=== PATIENT | male | born 1965 | race Caucasian/White ===

== ENCOUNTER 2016-12-02 00:50 | Inpatient (IN) | payer OTHER ==
[~2016-12-02] VITALS: Ht 175.3 cm; Wt 110.8 kg
--- NOTE | ~2016-12-02 | EKG ---
[place] [address] [facility] [place] [address] ELECTROCARDIOGRAM REPORT Name: DANIEL VAUGHAN Silvana Room #: 458-P ADM IN M.R.#: [id number] Admission: 12/02/16 Attend Phys: Christoph Ramey MD Discharge: Date of : 63 Report #: [id number] THIS REPORT FOR: //name// [facility] Test Date: 2016-12-02 Test Time: 07:06:45 Pat Name: DANIEL VAUGHAN Department: Room: 458 P Gender: M Cassandra Consultant: : [id number] Requested By: Payton Hernandez Order Number: [id number] MD: Cesar Rojo Measurements Intervals [place] Rate: 63 P: 47 DE: 145 QRS: -38 QRSD: 100 T: 159 QT: 448 QTc: 463 Interpretive Statements Sinus rhythm Multiform ventricular premature complexes Left atrial enlargement LVH w/ repol abnormalities, possible ischemia No previous ECG available for comparison Electronically Signed On 12-03-2016 7:46:56 CDT by Cesar Rojo [email or web address] <ELECTRONICALLY SIGNED> By: Cesar Rojo MD, [facility] 12/03/16 0746 5 5 Cesar Rojo MD, [facility] /EPI
--- NOTE | ~2016-12-02 | CATHLAB ---
[facility] [place] [address] INVASIVE PROCEDURE REPORT Name: CLEMENTDANIEL Silvana Room #: 458-P [facility] IN .#: [id number] Admission: 12/02/16 Attend Phys: Jerome Soriano Discharge: Date of : 63 Date of Service: 12/04/16 1632 Report #: [id number] THIS REPORT FOR: //name// APPROVED REPORT Patient Details The patient is a 51 year-old male Event Personnel Jaydon Reid Plastics Process Hand, Barb Vallejo RN RN, Antonio Kinney Morgan, Carol RN cook tortilla Performed Left Heart Cath w/or w/o Coronaries [id number] [facility] Indication Dyspnea, Heart failure Risk Factors Hypercholesterolemia, Hypertension, Tobacco History () Procedure Narrative The Right Groin^ was infiltrated with 1% Lidocaine subcutaneous anesthesia. A 4 FR SHEATH sheath was inserted into the RFA^. Coronary angiography was performed using coronary diagnostic catheters. The right coronary system was accessed and visualized with a JR4 catheter. The left coronary system was accessed and visualized with a JL4 catheter. The left ventricle was accessed and visualized with a PIGTAIL catheter. Left ventricular/Aortic Valve gradient assessed via catheter pullback. Hemostasis was obtained with manual pressure following sheath removal without any complications. The patient tolerated the procedure well and there were no complications associated with the procedure. There was no hematoma. Intraoperative Conscious Sedation Sedation start time: 14:46 Case end Time: 14:59 Fentanyl 100.0 mcg Versed mg Fluoro Time: 1.29 minutes Dose: 517 mGy Contrast Type and Amount: Omnipaque 120 ml Coronary Angiography The patient's coronary anatomy is right dominant. [facility] [employer] [address] [place] [address] INVASIVE PROCEDURE REPORT Name: DANIEL VAUGHAN Room #: 458-P [facility] IN [facility]#: [id number] Admission: 12/02/16 Attend Phys: Jerome Soriano Discharge: Date of : 63 Date of Service: 12/04/16 1632 Report #: [id number] Diagnostic Cath Left Main Large caliber vessel with no flow-limiting lesions. LAD Moderate caliber vessel, with minimal luminal irregularities within the mid segment. Diagonal 1 Moderate caliber vessel with no flow-limiting lesions. Circumflex Small-caliber vessel, with no flow-limiting lesions. OM1 Moderate caliber vessel, with no flow-limiting lesions. Right Coronary Large-caliber vessel, with minimal luminal irregularities within mid segment. R PDA No flow-limiting lesions. RPLV No flow-limiting lesions. Left Ventriculography The left ventricular ejection fraction is estimated to be 30-35%. Hemodynamics The aortic pressure is 148/94 mmHg with a mean of 90 mmHg. The left ventricular pressure is 149/25 mmHg with a mean of mmHg. The left ventricular end diastolic pressure is 44 mmHg. There was no gradient across the aortic valve upon pullback. Pullback from the left ventricle to the aorta revealed no gradient across the aortic valve. Conclusion 1. Nonischemic cardiomyopathy. 2. Patent [place] coronary arteries, with minimal luminal irregularities. 3. Recommend medical therapy. Recommendations Smoking Cessation Medical Therapy <ELECTRONICALLY SIGNED> By: Jaydon Reid MD 12/04/16 1632 [id number] Jaydon Reid MD /INF
--- NOTE | ~2016-12-02 | 2DMMODE ---
[facility] [address] [place] [address] 2 D/M-MODE ECHOCARDIOGRAM Name: DANIEL VAUGHAN Room #: 458-P ADM IN .R.#: [id number] Admission: 12/02/16 Attend Phys: Jerome Soriano Discharge: Date of : 63 Date of Service: 12/02/16 1112 Report #: [id number] THIS REPORT FOR: //name// APPROVED REPORT Study performed: 12/02/2016 08:18:12 EXAM: Comprehensive 2D, Doppler, and color-flow Echocardiogram Patient Location: Bedside Room #: 458 Status: routine Other Information Study Quality: Good Indications Congestive Heart Failure Pulmonary Hypertension Diabetes Dyspnea Hypertension/HDD 2D Dimensions RVDd: 43.40 mm LVEF(%): 50.24 (>50%) IVSd: 13.80 (7-11mm) LVOT Diam: 21.28 (18-24mm) LVDd: 52.97 mm PWd: 14.46 (7-11mm) Ascending Ao: 36.65 (22-36mm) LVDs: 39.34 (25-40mm) Aortic Root: 32.28 mm IVC: 23.00 mm Marcus's LVEF: 50.24 % Volumes Left Atrial Volume (Systole) Single Plane 4CH: 95.44 mL Single Plane 2CH: 82.86 mL LA ESV Index: 42.00 mL/m2 Aortic Valve AoV Peak Pankaj.: 1.10 m/s AO Peak Gr.: 4.85 mmHg LVOT Max P.65 mmHg LVOT Max V: 0.81 m/s MARISABEL Vmax: 2.63 cm2 Mitral Valve E/A Ratio: 1.9 MV Decel. Time: 127.72 ms [facility] [address] [place] [address] 2 D/M-MODE ECHOCARDIOGRAM Name: DANIEL VAUGHAN Room #: 458-P [facility] IN ..#: [id number] Admission: 12/02/16 Attend Phys: Jerome Soriano Discharge: Date of : 63 Date of Service: 12/02/16 1112 Report #: [id number] E Max Pankaj.: 1.04 m/s MV A Pankaj.: 0.55 m/s MV PHT: 37.04 ms IVRT: 92.27 ms Pulmonary Valve PV Peak Pankaj.: 0.97 m/s PV Peak Gr.: 3.73 mmHg Pulmonary Vein P Vein S: 0.31 m/s P Vein A: 0.22 m/s P Vein D: 0.37 m/s P Vein A Dur.: 115.3 msec P Vein S/D Ratio: 0.84 Tricuspid Valve TR Peak Pankaj.: 3.31 m/s RAP Estimate: 10.00 mmHg TR Peak Gr.: 43.84 mmHg PA Pressure: 54.00 mmHg Left Ventricle The left ventricle is normal size. There is hypokinesis in the mid to distal inferior wall. There is hypokinesis in the distal anterior wall. Mild concentric left ventricular hypertrophy. Left ventricular systolic function is mild to moderately decreased. LVEF is 40-45%. Grade II - pseudonormal filling dynamics. Right Ventricle Right ventricle is at the upper limits of normal. Right ventricle is normal. Atria Left atrium is moderately dilated. Right atrium is mildly dilated. Aortic Valve The aortic valve is normal in structure. Trace aortic regurgitation. There is no aortic valvular stenosis. Mitral Valve The mitral valve is normal in structure. Moderate mitral regurgitation. No evidence of mitral valve stenosis. Tricuspid Valve The tricuspid valve is normal in structure. There is moderate tricuspid regurgitation. The right atrial pressure is estimated at 10 mmHg. There is moderate pulmonary hypertension. The estimated PAP [place] [address] [place] [id number] 2 D/M-MODE ECHOCARDIOGRAM Name: DANIEL VAUGHAN Room #: 458-P [facility] IN [facility]#: [id number] Admission: 12/02/16 Attend Phys: Jerome Soriano Discharge: Date of : 63 Date of Service: 12/02/16 1112 Report #: [id number] Pulmonic Valve The pulmonary valve is normal in structure. Trace pulmonic regurgitation. Great Vessels The aortic root is normal in size. IVC is dilated and collapses <50% with inspiration. Pericardium There is no pericardial effusion. <Conclusion> The left ventricle is normal size. Mild concentric left ventricular hypertrophy. Left ventricular systolic function is mild to moderately decreased. Left atrium is moderately dilated. Trace aortic regurgitation. Moderate mitral regurgitation. There is moderate tricuspid regurgitation. The right atrial pressure is estimated at 10 mmHg. There is moderate pulmonary hypertension. The estimated PAP was 54 mmHg. <ELECTRONICALLY SIGNED> By: Jaydon Reid MD 12/02/16 111 11 11 Jaydon Reid MD /INF
[2016-12-02 02:32] VITALS: BP 124/83
[2016-12-02 04:29] VITALS: BP 124/79
[2016-12-02 05:48] LABS: CHOLESTEROL 149 mg/dL (<200); HDL CHOLESTEROL 36 mg/dL (>40); LDL CHOLESTEROL 69 mg/dL (<100); TC:HDL 4.1 Ratio (Not establshd); TRIGLYCERIDE 222 mg/dL (<150); VLDL 44 mg/dL (<40)
[2016-12-02 08:01] VITALS: BP 142/98
[2016-12-02 12:00] VITALS: BP 118/78
[2016-12-02 16:20] VITALS: BP 134/83
[2016-12-02 20:36] VITALS: BP 100/52
[2016-12-03 01:13] LABS: GLYCOHEMOGLOBIN (HGB A1C) 6.4 % (4.8-5.6)
[2016-12-03 06:16] LABS: HEMATOCRIT 42.7 % (42.0-52.0); HEMOGLOBIN 14.5 gm/dL (14.0-18.0); MCH 29.2 pg (26.0-34.0); MCHC 33.9 g/dL (28.0-37.0); MCV 86.1 fL (80.0-100.0); RBC 4.96 mil/uL (4.50-6.00); RDW 14.1 % (10.5-14.5); WBC 8.7 thou/uL (4.0-11.0)
[2016-12-03 06:33] LABS: ALBUMIN 3.4 g/dL (3.4-5.0); CALCIUM 8.9 mg/dL (8.5-10.1); TOTAL BILIRUBIN 0.5 mg/dL (<0.1-1.0); TOTAL PROTEIN 6.6 g/dL (6.4-8.2)
[2016-12-03 06:59] VITALS: BP 127/79
[2016-12-03 12:12] VITALS: BP 133/92
[2016-12-03 15:12] VITALS: BP 135/75
[2016-12-03 19:26] VITALS: BP 135/81
[2016-12-04] VITALS (7 sets, daily range): BP systolic 112–163; BP diastolic 81–113
[2016-12-04 11:42] LABS: CALCIUM 8.8 mg/dL (8.5-10.1); CREATININE 0.8 mg/dL (0.7-1.3); POTASSIUM 4.3 mmol/L (3.5-5.1)
[2016-12-04 11:47] LABS: INR 1.1; PROTIME 10.5 Seconds (9.3-11.4)
[2016-12-04 11:48] LABS: ALBUMIN 3.3 g/dL (3.4-5.0); TOTAL BILIRUBIN 0.4 mg/dL (<0.1-1.0); TOTAL PROTEIN 6.5 g/dL (6.4-8.2)
== END 2016-12-04 20:05 | disposition left against medical advice (07) | DRG 286 ==
LOC: 4W 00:50
PROVIDERS: Internal Medicine Cardiovascular Disease; Nurse Practitioner Family
PROC: 4A023N7 Measurement of Cardiac Sampling and Pressure, Left Heart, Percutaneous Approach (ICD-10-PCS; principal; 2016-12-04)
PROC: B2111ZZ Fluoroscopy of Multiple Coronary Arteries using Low Osmolar Contrast (ICD-10-PCS; principal; 2016-12-04)
PROC: B2151ZZ Fluoroscopy of Left Heart using Low Osmolar Contrast (ICD-10-PCS; principal; 2016-12-04)
DX: I11.0 Hypertensive heart disease with heart failure (principal); J18.9 Pneumonia, unspecified organism; I50.43 Acute on chronic combined systolic (congestive) and diastolic (congestive) heart failure; G47.33 Obstructive sleep apnea (adult) (pediatric); E11.9 Type 2 diabetes mellitus without complications; F17.210 Nicotine dependence, cigarettes, uncomplicated; F10.20 Alcohol dependence, uncomplicated; I27.2 Other secondary pulmonary hypertension; Y90.0 Blood alcohol level of less than 20 mg/100 ml; Z53.21 Procedure and treatment not carried out due to patient leaving prior to being seen by health care provider; Z88.0 Allergy status to penicillin; Z79.4 Long term (current) use of insulin; Z91.19 Patient's noncompliance with other medical treatment and regimen; Z71.6 Tobacco abuse counseling; Z91.14 Patient's other noncompliance with medication regimen; Z86.14 Personal history of Methicillin resistant Staphylococcus aureus infection; Z90.49 Acquired absence of other specified parts of digestive tract; Z82.49 Family history of ischemic heart disease and other diseases of the circulatory system
CPT/HCPCS: 10045